=== PATIENT | male | born 1955 | race Caucasian/White ===

== ENCOUNTER 2022-05-31 10:31 | Emergency (ER) | payer BC ==
[~2022-05-31] VITALS: Ht 182.9 cm; Wt 79.5 kg
[2022-05-31 10:54] VITALS: BP 126/74
[2022-05-31] MEDS ORDERED: ibuprofen tablet 400 MG TABLET PO ONE (12:30)
[2022-05-31] MEDS ORDERED: acetaminophen 325mg tablet PO ONE (12:30)
[2022-05-31] MEDS ORDERED: metroNIDAZOLE 500mg tablet PO ONE (12:30)
[2022-05-31] MEDS ORDERED: amox tr/potassium clavulanate 875/125mg TAB PO ONE (12:30)
[2022-05-31] MEDS ORDERED: OXYC-145 PO (12:37)
[2022-05-31] MEDS ORDERED: AMOX-580 PO (12:37)
[2022-05-31] MEDS ORDERED: METR-159 PO (12:37)
[2022-05-31] MEDS ORDERED: LACT10SO3 PO (12:37)
== END 2022-05-31 12:57 | disposition home or self-care (01) ==
LOC: ER 10:32
DX: M54.50 Low back pain, unspecified (principal); Z87.891 Personal history of nicotine dependence; Z79.899 Other long term (current) drug therapy
CPT/HCPCS: 99284

== ENCOUNTER 2022-06-12 10:56 | Day surgery (SDC) | payer BC ==
[2022-06-12] VITALS (13 sets, daily range): BP systolic 112–149; BP diastolic 65–105
[~2022-06-12] VITALS: Ht 182.9 cm; Wt 77.2 kg
[~2022-06-12 10:56] MED LIST: AMOX-580 PO; LACT10SO3 PO; OXYC-145 PO
[2022-06-12] MEDS ORDERED: iohexol 300mg/ml 100ml inj. ONE (11:34)
[2022-06-12] MEDS ORDERED: LIDOcaine 1% 30ml preserv. free vial ONE (11:34)
[2022-06-12] MEDS ORDERED: ALLO100T PO (11:41)
[2022-06-12] MEDS ORDERED: LEVO112T5 PO (11:41)
[2022-06-12] MEDS ORDERED: fentaNYL/PF 50MCG/1 ML 2ML syringe ONE (11:52)
[2022-06-12] MEDS ORDERED: midazolam 1 mg/ML 2ml injection ONE (11:52)
== END 2022-06-12 13:50 | disposition home or self-care (01) ==
LOC: SSTAY O 10:56
PROVIDERS: ATTEND Radiology Vascular & Interventional Radiology
DX: K61.0 Anal abscess (principal); I25.2 Old myocardial infarction; Z87.891 Personal history of nicotine dependence; Z79.899 Other long term (current) drug therapy
CPT/HCPCS: 10160; 77012; 87070; J2250; J3010; J3490; J7030; Q9967; 99152; 99153; A4615; A4620

== ENCOUNTER 2024-07-08 19:23 | Emergency (ER) | payer BC, MEDICARE ==
[~2024-07-08] VITALS: Ht 182.9 cm; Wt 80.0 kg
[~2024-07-08 19:23] MED LIST changes: +ALLO100T PO; -AMOX-580 PO; -LACT10SO3 PO; +LEVO112T5 PO; -OXYC-145 PO
[2024-07-08 19:24] VITALS: TEMP 96.7
[2024-07-08 19:52] LABS: BASOPHILS # (AUTO) 0.1 X10'3 (0-0.2); BASOPHILS % (AUTO) 0.8 % (0-1); EOSINOPHILS # (AUTO) 0.2 X10'3 (0-0.9); EOSINOPHILS % (AUTO) 2.4 % (0-6); HEMOGLOBIN 11.4 g/dl (14.0-17.9); LYMPHOCYTES % (AUTO) 40.1 % (21-51); MEAN CORPUSCULAR HEMOGLOBIN 35.4 PG (27.0-31.0); MEAN CORPUSCULAR HGB CONC 34.5 g/dL (33.0-36.5); MEAN CORPUSCULAR VOLUME 102.8 FL (78-98); MONOCYTES # (AUTO) 0.7 X10'3 (0-0.9); MONOCYTES % (AUTO) 9.8 % (2-12); NEUTROPHILS # (AUTO) 3.5 X10'3 (1.8-7.7); NEUTROPHILS % (AUTO) 46.9 % (42-75); PLATELET COUNT 301 X10'3 (140-440); RED BLOOD COUNT 3.21 X10'6 (4.70-6.10); RED CELL DISTRIBUTION WIDTH 17.8 % (11.5-14.5); WHITE BLOOD COUNT 7.4 X10'3 (4.5-11.0)
[2024-07-08 20:02] LABS: ALANINE AMINOTRANSFERASE 21 U/L (12-78); ALBUMIN 3.7 G/DL (3.4-5.0); ALBUMIN/GLOBULIN RATIO 1.1 (1.1-1.5); ALKALINE PHOSPHATASE 90 IU/L (46-116); ANION GAP 9 (8-16); ASPARTATE AMINO TRANSFERASE 15 U/L (10-37); BILIRUBIN,TOTAL 0.4 MG/DL (0.1-1.0); BLOOD UREA NITROGEN 14 MG/DL (7-18); BUN/CREATININE RATIO 14.7 (10.0-20.0); CALCIUM 9.2 MG/DL (8.5-10.1); CHLORIDE 101 MMOL/L (99-107); CREATININE 0.95 MG/DL (0.60-1.10); GLUCOSE 74 MG/DL (70-104); POTASSIUM 3.4 MMOL/L (3.5-5.1); SODIUM 138 MMOL/L (135-145); TOTAL CARBON DIOXIDE 28.2 MMOL/L (24-32); TOTAL PROTEIN 7.1 G/DL (6.4-8.2); eCRCL 84 ML/MIN; eGFR 79 ML/MIN
[2024-07-08 20:09] LABS: PRO BRAIN NATRIURETIC PEPTIDE 111 PG/ML (0-125)
[2024-07-08] MEDS: ringers solution, lacted 1,000 ML IV ONE ×2 (20:21→20:57)
[2024-07-08 22:16] LABS: URINE AMPHETAMINE SCREEN NEGATIVE (Neg); URINE BARBITUATE SCREEN NEGATIVE (Neg); URINE BENZODIAZEPINES SCREEN NEGATIVE (Neg); URINE CANNABINOID SCREEN POSITIVE (Neg); URINE COCAINE SCREEN NEGATIVE (Neg); URINE METHADONE SCREEN NEGATIVE (Neg); URINE OPIATE SCREEN NEGATIVE (Neg); URINE PHENCYCLIDINE SCREEN NEGATIVE (Neg)
[2024-07-09 00:39] VITALS: BP 134/77; PULSE 85; RESP 16; O2SAT 94
== END 2024-07-09 01:17 | disposition home or self-care (01) ==
LOC: ER 19:24
DX: E86.0 Dehydration (principal); Z79.899 Other long term (current) drug therapy
CPT/HCPCS: 36415; 71045; 80053; 80305; 83605; 83880; 84484; 85025; 93005; 96360; 99285; G0480; J7120; 80320